=== PATIENT | female | born 1985 | race Caucasian/White ===

== ENCOUNTER 2017-01-13 09:31 | Emergency (ER) | payer SELFPAY ==
[~2017-01-13] VITALS: Ht 160 cm; Wt 63.5 kg
[~2017-01-13 09:31] MED LIST: CIPR500T94 PO; IBUP-1007 PO; LEVE100020 PO
[2017-01-13 09:40] VITALS: BP 120/70
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
[2017-01-13] MEDS ORDERED: KETOROLAC TROMETHAMINE 30 MG/ML INJ. IV ONE (10:00)
[2017-01-13] MEDS ORDERED: ONDANSETRON PF 4 MG/2 ML VIAL. IV ONE (10:00)
== END 2017-01-13 10:05 | disposition home or self-care (01) ==
LOC: ER 09:31
DX: G40.909 Epilepsy, unspecified, not intractable, without status epilepticus (principal); M79.1 Myalgia; R11.0 Nausea; Z79.899 Other long term (current) drug therapy; Z98.51 Tubal ligation status
CPT/HCPCS: 96374; 96375; 99284; J1885; J2405

== ENCOUNTER 2017-10-11 12:06 | Emergency (ER) | payer OTHER ==
[2017-10-11 12:38] LABS: ADD MAN DIFF? NO
[2017-10-11 12:40] LABS: BASO # 0.1 x10^3/uL (0.0-0.2); BASO % 1 % (0-3); EOS # 0.1 x10^3/uL (0.0-0.7); EOS % 3 % (0-3); HEMATOCRIT 41.1 % (36.0-47.0); HEMOGLOBIN 14.3 g/dL (12.0-15.5); LYMPH # 1.6 x10^3/uL (1.0-4.8); LYMPH % 30 % (24-48); MEAN CORPUSCULAR HEMOGLOBIN 34 pg (25-35); MEAN CORPUSCULAR HGB CONC 35 g/dL (31-37); MEAN CORPUSCULAR VOLUME 97 fL (79-100); MONO # 0.4 x10^3/uL (0.0-1.1); MONO % 8 % (0-9); NEUT # 3.2 x10^3uL (1.8-7.7); NEUT % 59 % (31-73); PLATELET COUNT 222 x10^3/uL (140-400); RED BLOOD COUNT 4.23 x10^6/uL (3.50-5.40); RED CELL DISTRIBUTION WIDTH 12.9 % (11.5-14.5); WHITE BLOOD COUNT 5.4 x10^3/uL (4.0-11.0)
[2017-10-11 12:53] LABS: ANION GAP 10 (6-14); BLOOD UREA NITROGEN 10 mg/dL (7-20); BUN/CREATININE RATIO 10 (6-20); CARBON DIOXIDE 24 mmol/L (21-32); CHLORIDE 105 mmol/L (98-107); GFR 64.7; GLUCOSE 88 mg/dL (70-99); POTASSIUM 3.9 mmol/L (3.5-5.1); SODIUM 139 mmol/L (136-145)
[2017-10-11] MEDS: diphenhydrAMINE 50 MG/ML VIAL IVP (12:55)
[2017-10-11] MEDS: METOCLOPRAMIDE HCL 10 MG/2 ML VIAL. IV (12:55)
[2017-10-11 13:01] LABS: ALBUMIN 3.5 g/dL (3.4-5.0); ALBUMIN/GLOBULIN RATIO 0.9 (1.0-1.7); ALK PHOS 85 U/L (46-116); ALT (SGPT) 27 U/L (14-59); AST (SGOT) 21 U/L (15-37); BILIRUBIN,URINE NEGATIVE (NEG); CLARITY,URINE CLEAR; COLOR,URINE YELLOW; GLUCOSE,URINE NEGATIVE (NEG); LIPASE 66 U/L (73-393); NITRITE,URINE NEGATIVE (NEG); PROTEIN,URINE 30 mg/dL (NEG-TRACE); TOTAL BILIRUBIN 0.2 mg/dL (0.2-1.0); TOTAL PROTEIN 7.4 g/dL (6.4-8.2); UROBILINOGEN,URINE 0.2 mg/dL (0.2 mg/dL)
[2017-10-11 13:08] LABS: SQUAMOUS EPITHELIAL CELL,UR MANY /LPF
[2017-10-11 13:09] LABS: BACTERIA,URINE FEW /HPF (0-FEW); RBC,URINE OCC /HPF (0-2)
[2017-10-11] MEDS: levETIRAcetam 500 MG TABLET PO (14:03)
[2017-10-11 14:06] LABS: NEG OBC SER NEG; POS OBC SER POS; PREG TEST PT QUAL NEGATIVE (NEG)
[2017-10-11] MEDS ORDERED: levETIRAcetam 500 MG TABLET PO (21:00)
== END 2017-10-11 15:15 | disposition home or self-care (01) ==
LOC: ER 12:06
DX: R56.9 Unspecified convulsions (principal); Z98.51 Tubal ligation status; Z79.899 Other long term (current) drug therapy
CPT/HCPCS: 36415; 70450; 80053; 81001; 83690; 84703; 85025; 96374; 96375; 99285-25; J1200; J2765

== ENCOUNTER 2018-05-27 03:23 | Emergency (ER) | payer OTHER ==
[~2018-05-27] VITALS: Ht 157.5 cm; Wt 59.0 kg
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
[2018-05-27] MEDS ORDERED: HYDROcodone/APAP 5/325MG 1 TAB TABLET PO ONE (04:00)
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
[2018-05-27] MEDS ORDERED: IBUP-1060 PO (05:52)
[2018-05-27] MEDS ORDERED: HYDR-971 PO (05:52)
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
[2018-05-27] MEDS ORDERED: AMOX1TAB61 PO (06:50)
[2018-05-27 07:00] VITALS: BP 112/75
[2018-05-27] MEDS ORDERED: FLUORESCEIN OPHTH TEST STRIP. OD ONE (07:00)
[2018-05-27] MEDS ORDERED: TETRACAINE 0.5% OPHTH SOLUTION 4ML BOTTLE. OS ONE (07:00)
== END 2018-05-27 07:59 | disposition home or self-care (01) ==
LOC: EEVIPCON 03:23 → ER 03:23
DX: S02.31XA Fracture of orbital floor, right side, initial encounter for closed fracture (principal); S40.012A Contusion of left shoulder, initial encounter; S50.02XA Contusion of left elbow, initial encounter; Y08.89XA Assault by other specified means, initial encounter; Y93.89 Activity, other specified; Y92.89 Other specified places as the place of occurrence of the external cause; Y99.8 Other external cause status
CPT/HCPCS: 70450; 70486; 73080; 99284-25